=== PATIENT | female | born 1990 | race Caucasian/White ===

== ENCOUNTER 2017-12-15 01:12 | Emergency (ER) | payer SELFPAY ==
--- NOTE | 2017-12-15 01:48 | EDM.PDOC ---
ED HPI GENERAL MEDICAL PROBLEM - General Chief Complaint: Lower Extremity Injury/Pain Stated Complaint: POSSIBLE BROKEN RIGHT ANKLE Time Seen by Provider: 12/15/17 01:44 Source of Information: Reports: Patient, Family History Limitations: Reports: No Limitations - History of Present Illness INITIAL COMMENTS - FREE TEXT/NARRATIVE: History of present illness: 27-year-old female presenting to the emergency department with chief complaint of right ankle pain after a fall. Patient states that this evening at approximately midnight she was taking her dog out to urinate when she slipped on the ice outside of their door. She denies hitting her head or other injuries. She did twist her ankle rolling ankle in. She had immediate pain and swelling. Secondary to the swelling and pain she presented emergency department for further evaluation. She denies any allergies, takes no medications, and has no significant past medical history. Review of systems: As per history of present illness and below otherwise all systems reviewed and negative. Past medical history: As per history of present illness and as reviewed below otherwise noncontributory. Surgical history: As per history of present illness and as reviewed below otherwise noncontributory. Social history: No reported history of drug or alcohol abuse. Family history: As per history of present illness and as reviewed below otherwise noncontributory. Physical exam: General: Well developed well nourished, Alert and Orientated x3, In no acute distress HEENT: Atraumatic, normocephalic, pupils reactive, negative for conjunctival pallor or scleral icterus, mucous membranes moist, throat clear, neck supple, nontender, trachea midline. Lungs: Clear to auscultation, breath sounds equal bilaterally, chest nontender. Heart: S1S2, regular, negative for clicks, rubs, or JVD. Abdomen: Soft, nondistended, nontender. Negative for masses or hepatosplenomegaly. Negative for costovertebral tenderness. Pelvis: Stable nontender. Genitourinary: Deferred. Rectal: Deferred. Extremities: Moderate swelling to the right ankle with no visual bony abnormalities, negative for cords or calf pain. Neurovascular intact and unremarkable . Neuro: Awake, alert, oriented. Cranial nerves II through XII unremarkable. Cerebellum unremarkable. Motor and sensory unremarkable throughout. Exam nonfocal. Diagnostics: Three-view right ankle x-ray: Oblique fracture in the lateral malleolus with distal fragment displaced laterally 4 mm. Therapeutics: Tordol IM 60 mg 1 Percocet 5-325 mg x1 Impression: Acute lateral malleolus fracture with lateral displacement X-ray of the right ankle revealed an oblique fracture of the lateral malleolus with a distal fragment displaced laterally [address] Doyle, orthopedic surgeon, was consulted and recommended a posterior splint as well as have the patient see him in clinic tomorrow a.m. Patient was given Toradol 60 mg IM and Percocet 5-325 mg by mouth for pain control. Patient was discharged in good condition with posterior splint and instructions to follow-up in the a.m. with Dr. Doyle at his clinic. She was instructed to return to the emergency department if she had any problems with her pain control. She was given a prescription for Percocet 5- 325 #12 and a note excusing her from work for the next two days while she see the orthopedic surgeon. Definitive disposition and diagnosis as appropriate pending reevaluation and review of above - Related Data Allergies Allergy/AdvReac Type Severity Reaction Status Date / Time No Known Allergies Allergy Verified 12/15/17 01:23 Home Meds: Home Meds Acetaminophen/oxyCODONE [Percocet 325-5 MG] 1 each PO Q6HR PRN #12 tab 12/15/17 [Rx] Past Medical History - Past Health History Medical/Surgical History: Denies Medical/Surgical History Social & Family History - Family History Family Medical History: Noncontributory - Tobacco Use Smoking Status *Q: Never Smoker - Caffeine Use Caffeine Use: Reports: None - Recreational Drug Use Recreational Drug Use: No Review of Systems - Review of Systems Review Of Systems: See Below ED EXAM, GENERAL - Physical Exam Exam: See Below Course - Vital Signs Last Recorded V/S: Last Vital Signs Temp 98.1 F 12/15/17 01:19 Pulse 99 12/15/17 01:19 Resp 18 12/15/17 01:19 BP 113/83 12/15/17 01:19 Pulse Ox 97 12/15/17 01:19 - Orders/Labs/Meds Orders: Active Orders 24 hr Category Date Time Status Ankle Min 3V Rt [CR] Stat Exams 12/15/17 01:44 Taken Labs: Laboratory Tests 12/15/17 Range/Units 01:30 Urine HCG, Qual NEGATIVE (NEGATIVE) Meds: Medications Discontinued Medications Generic Name Dose Route Start Last Admin Trade Name Freq PRN Reason Stop Dose Admin Ketorolac Tromethamine 30 mg 12/15/17 02:49 Toradol IM 12/15/17 02:50 ONETIME ONE Ketorolac Tromethamine 60 mg 12/15/17 02:56 Toradol IM 12/15/17 02:57 ONETIME ONE Oxycodone/Acetaminophen 1 tab 12/15/17 02:48 Percocet 325-5 Mg PO 12/15/17 02:49 ONETIME ONE Departure - Departure Time of Disposition: 03:09 (Follow up with Dr. Doyle orthopedic surgeon in [place] as he requested.) Disposition: Home, Self-Care 01 Condition: Good Clinical Impression: Fracture of malleolus, right ankle, closed - Discharge Information Prescriptions: Acetaminophen/oxyCODONE [Percocet 325-5 MG] 1 each PO Q6HR PRN #12 tab PRN Reason: Pain Referrals: PCP,None [Primary Care Provider] - Forms: ED Department Discharge - My Orders Last 24 Hours: My Active Orders 12/15/17 01:44 Ankle Min 3V Rt [CR] Stat - Assessment/Plan Last 24 Hours: My Active Orders 12/15/17 01:44 Ankle Min 3V Rt [CR] Stat
[2017-12-15] MEDS ORDERED: Acetaminophen/oxyCODONE 325-5 MG Tab PO ONE (02:48)
[2017-12-15] MEDS ORDERED: Ketorolac 30 MG/ML SDV IM ONE (02:49)
[2017-12-15] MEDS ORDERED: Ketorolac 60 MG/2 ML SDV IM ONE (02:56)
--- NOTE | 2017-12-15 19:54 | CR ---
EXAM DATE: 12/15/17 PATIENT'S AGE: 27 Patient: RUBY HAGAN Facility: [place], [place] Site . Site : 1990 Study: XRay Extremity Right [id number] 2:26:33 AM Ordering Physician: Yovany Carpenter Final Report: INDICATION: Ankle Injury TECHNIQUE: Ankle radiograph 3 views right COMPARISON: None FINDINGS: Bones: There is an oblique fracture in the lateral malleolus present with the distal fragment displaced laterally by 4 mm. Joints: The ankle mortise joint and the visualized hindfoot joints are unremarkable in appearance. No significant ankle effusion is seen. Soft tissue: Mild lateral soft tissue swelling is noted. No radiopaque foreign bodies are seen. IMPRESSION: 1. There is an oblique fracture in the lateral malleolus present with the distal fragment displaced laterally by 4 mm. Dictated by Casey Paulino MD @ 12/15/2017 2:31:15 AM Dictated by: Casey Paulino MD @ 12/15/2017 02:31:19 (Electronic Signature) Report Signed by Proxy. CAROL
== END 2017-12-15 03:30 | disposition home or self-care (01) ==
LOC: MW.ED 01:12
DX: S82.61XA Displaced fracture of lateral malleolus of right fibula, initial encounter for closed fracture (principal); W18.40XA Slipping, tripping and stumbling without falling, unspecified, initial encounter; X50.1XXA Overexertion from prolonged static or awkward postures, initial encounter; Y93.K9 Activity, other involving animal care; Y92.89 Other specified places as the place of occurrence of the external cause
CPT/HCPCS: 73610; 81025; 96372; 99283; A9270; J1885; 99284